=== PATIENT | male | born 1965 | race Hispanic/Latino ===

== ENCOUNTER 2020-07-21 09:00 | Emergency (ER) | payer MEDICARE ==
[2020-07-21] MEDS ORDERED: Triamcinolone 40 MG/ML VIAL ONE (09:13)
== END 2020-07-21 09:22 | disposition home or self-care (01) ==
LOC: BURERS 09:00
DX: M10.022 Idiopathic gout, left elbow (principal)
CPT/HCPCS: 96372; 99283; J3301